=== PATIENT | female | born 1930 | race Caucasian/White ===

== ENCOUNTER 2017-09-10 10:33 | Inpatient (IN) | payer MEDICARE, OTHER ==
--- NOTE | 2017-09-03 14:34 | HP ---
HISTORY AND PHYSICAL: DATE OF ADMISSION/SURGERY: 09/10/17. DATE OF OFFICE VISIT: 09/02/17. SURGEON: Zulma Hernandez MD.* (DICTATED BY TERI VALDIVIA) PROCEDURE: Left total knee arthroplasty. CHIEF COMPLAINT: Left knee pain. HISTORY OF PRESENT ILLNESS: Ms. Masters is an 87-year-old female with severe left knee pain secondary to endstage osteoarthritis. She has failed conservative management and elected to proceed with left total knee arthroplasty , which was scheduled for 09/10/[address] Hernandez. PAST MEDICAL HISTORY: Hypertension, history of ovarian cancer. PAST SURGICAL HISTORY: Hysterectomy, right total knee arthroplasty, tonsillectomy. CURRENT MEDICATIONS: 1. Clobetasol as needed. 2. Aspirin 81 mg daily. 3. Diovan 80 mg daily. 4. Diclofenac gel as needed. ALLERGIES: SULFA and PENICILLIN, both causing hives. FAMILY HISTORY: Cancer. SOCIAL HISTORY: She is an 87-year-old female. She lives alone. She does not smoke, use drugs or alcohol. REVIEW OF SYSTEMS: A complete 14-point review of systems was reviewed with the patient and negative. It is all negative and noncontributory . She denies history of DVT, PE, hepatitis, HIV, or anesthesia problems. PHYSICAL EXAMINATION GENERAL: She is well developed, well nourished, in no acute distress. She is alert and oriented x3. VITAL SIGNS: She stands 5 feet 2 inches tall, weighs 170 pounds. Blood pressure is 142/70, heart rate 76. HEENT: Normocephalic, atraumatic. NECK: Supple. No palpable lymph nodes. PULMONARY: Lungs are clear to auscultation bilaterally. CARDIO: Regular rate and rhythm. ABDOMEN: Soft, nontender, nondistended. MUSCULOSKELETAL: Left lower extremity: Skin is intact. There are no open wounds or abrasions. She has some moderate joint effusion, tenderness over the medial and lateral joint line. 10 to 120 degrees of flexion with patellofemoral crepitus. She has 2+ dorsalis pedis pulses. Intact sensation in the lower extremities. Muscle group strengths are intact at 5/5. ASSESSMENT AND PLAN: Ms. Masters is an 87-year-old female with endstage osteoarthritis of the left knee. She has failed conservative management and elected to proceed with a left total knee arthroplasty which is scheduled for with Dr. Hernandez. Dr. Hernandez discussed the risks and benefits of the surgery at today's visit and all of her questions were answered. She will follow up with Dr. Hernandez in 2 weeks after the surgery. TERI VALDIVIA [id number]/[facility] #: [id number] GERMÁN
[~2017-09-10 10:33] MED LIST: Buffered Lidocaine 0.9% SYRIN* 5 ML/SYR SYRINGE INTRADERM ONE
[2017-09-10] MEDS ORDERED: ceFAZolin 2 GM PREMIX (*) 0 GM/0 ML BAG IVPB ONE (10:56)
[2017-09-10] MEDS ORDERED: Lidocaine 1%* 5 ML VIAL ONE (12:17)
[2017-09-10] MEDS ORDERED: ROPIVACAINE 5 MG/ML 30 ML BTL (0.5%) ONE (12:17)
[2017-09-10] MEDS ORDERED: Clindamycin 900 MG IVPREMIX(* 900 MG/50 ML SDV IV ONE (12:25)
[2017-09-10] MEDS ORDERED: Midazolam* 1 MG/ML 5 ML VIAL (5 MG) ONE (12:26)
[2017-09-10] MEDS ORDERED: fentaNYL* 50 MCG/ML 2 ML VIAL (100 MCG VIAL) ONE ×2 (12:49→13:34)
[2017-09-10] MEDS ORDERED: KETAMINE HCL* 50 MG/ML 10 ML VIAL ONE (12:50)
[2017-09-10] MEDS ORDERED: Succinylcholine* 20 MG/ML 10 ML VIAL ONE (12:50)
[2017-09-10] MEDS ORDERED: Propofol* 10 MG/ML 20 ML BTL IV PUSH ONE (13:17)
[2017-09-10] MEDS ORDERED: Lidocaine 2% PF * 5 ML VIAL ONE (13:23)
[2017-09-10] MEDS ORDERED: Dexamethasone IV* 4 MG/ML 1 ML (4 MG) ONE (13:23)
[2017-09-10] MEDS ORDERED: DiMENhydriNATE IV* 50 MG/ML VIAL ONE (13:23)
[2017-09-10] MEDS ORDERED: Ketorolac INJ* 30 MG/ML 1 ML VIAL ONE (13:23)
[2017-09-10] MEDS ORDERED: EPHEDrine (Pressors)* 50 MG/ML VIAL ONE (13:23)
[2017-09-10] MEDS ORDERED: Bupivacaine 0.5% SDV PF* 30ML VIAL ONE (13:24)
[2017-09-10] MEDS ORDERED: oxyCODONE TAB* 5 MG TAB PO PRN ×2 (13:56→15:25)
[2017-09-10] MEDS ORDERED: HYDROmorphone INJ* 1 MG/ML CARPUJECT SYRINGE IV PRN (13:56)
[2017-09-10] MEDS ORDERED: Acetaminophen TAB* 325 MG PO PRN ×2 (13:56→15:25)
[2017-09-10] MEDS ORDERED: Ondansetron INJ* 2 MG/ML VIAL IV PRN ×2 (13:56→15:25)
[2017-09-10] MEDS ORDERED: Naloxone* 0.4 MG/ML 1 ML VIAL IV PRN (13:56)
[2017-09-10] MEDS ORDERED: Gabapentin CAP(*) 300 MG PO ONE (14:00)
[2017-09-10] MEDS ORDERED: HYDROmorphone INJ* 1 MG/ML CARPUJECT SYRINGE ONE (14:53)
[2017-09-10] MEDS ORDERED: diPHENhydraMINE PO* 25 MG PO PRN (15:25)
[2017-09-10] MEDS ORDERED: Bisacodyl SUPP* 10 MG SUPP PR PRN (15:25)
[2017-09-10] MEDS ORDERED: Magnesium Hydroxide LIQ* 30 ML UDC PO PRN (15:25)
[2017-09-10] MEDS ORDERED: Morphine VIAL* 4 MG/ML VIAL (1 ml vial) IV PRN (15:25)
[2017-09-10] MEDS ORDERED: Gabapentin CAP(*) 300 MG ONE (15:48)
--- NOTE | 2017-09-10 16:47 | RAD ---
HISTORY: Postop, status post left knee arthroplasty COMPARISONS: August 12, 2017 VIEWS: 2, Frontal and lateral views of the left knee FINDINGS: BONE DENSITY: Normal. BONES: The patient is status post left knee arthroplasty. There is no hardware failure or osteolysis. JOINTS: The patient is status post left knee arthroplasty. ALIGNMENT: There is no dislocation. SOFT TISSUES: There is post surgical change to the soft tissues. OTHER FINDINGS: None. IMPRESSION: STATUS POST LEFT KNEE ARTHROPLASTY
[2017-09-10] MEDS ORDERED: Warfarin TAB(*) 6 MG PO ONE (17:00)
[2017-09-10 18:03] LABS: INR 0.92 (0.77-1.02)
[2017-09-10] MEDS: oxyCODONE/Acetamin 5/325 MG* TAB PO PRN (21:56)
[2017-09-10] MEDS: Docusate CAP* 100 MG PO SCH (21:56)
[2017-09-10] MEDS: Clindamycin 600 MG IVPREMIX(* 600 MG/50 ML SDV IV SCH (21:57)
[2017-09-10] MEDS: Magnesium Hydroxide LIQ* 30 ML UDC PO SCH (21:57)
--- NOTE | 2017-09-11 04:07 | CONS ---
CONSULTATION NOTE: DATE OF CONSULT: 09/10/17 CHIEF COMPLAINT/REASON FOR ADMISSION: The patient was admitted for elective left total knee arthroplasty. HISTORY OF PRESENT ILLNESS/HOSPITAL COURSE: The patient is an 87-year-old lady with history of hypertension and history of ovarian cancer, on remission, status post YOHANNES-BSO who also has had history of severe left knee pain secondary to end-stage osteoarthritis. She has failed conservative management and has elected to proceed with left total knee arthroplasty scheduled today. She had her preoperative evaluation by Ms. Rivas back on . She underwent the aforementioned procedure today without any reported perioperative complications. She currently feels well and currently pain free and in good spirits for surgical procedure. PAST MEDICAL AND SURGICAL HISTORY: Hypertension; history of ovarian cancer on remission, status post YOHANNES-BSO; status post right total knee arthroplasty; tonsillectomy; right leg fracture status post pin placement as well as cast placement back many years ago as well as end-stage osteoarthritis as discussed. MEDICATIONS: Her current medications are: 1. Tylenol. 2. Bisacodyl. 3. Clindamycin. 4. Diovan. 5. Diphenhydramine. 6. Colace. 7. Enoxaparin for DVT prophylaxis. 8. Gabapentin. 9. Hydromorphone. 10. Lactated Ringers. 11. Magnesium hydroxide. 12. Ondansetron. 13. Oxycodone. 14. Warfarin. ALLERGIES: SULFA and PENICILLIN causing hives for both. FAMILY HISTORY: Cancer. SOCIAL HISTORY: She lives alone. She does not smoke nor use drugs nor alcohol. REVIEW OF SYSTEMS: She denied any recent headaches, dizziness, fevers, chills, nausea, vomiting, chest pain, shortness of breath, increased cough or sputum production, abdominal pain, diarrhea, constipation, pain and/or increased urination, myalgias or arthralgias, throat pain or new skin lesions. The rest of the 14-point review of systems are otherwise unremarkable. PHYSICAL EXAM: Shows the most recent vital signs of records with temperature of 97.3 degrees Fahrenheit, 67 beats per minute heart rate, 16 per minute respiratory rate, saturating at 98% on room air, blood pressure of 141/62. General Appearance: The patient is awake, alert and oriented x3, not in acute distress. HEENT: Normocephalic, atraumatic. PERRLA. Extraocular muscles intact. Negative for icterus. Moist oral mucosa. Negative throat erythema. Neck is soft, supple with no cervical lymphadenopathy. No JVD. Heart: S1, S2 within normal limits. Regular rate and rhythm. No murmurs, rubs, or gallops. Chest: Clear to auscultation bilaterally. Good air entry. No wheezes, rales, or rhonchi. Abdomen: Soft, nondistended, nontender. Normoactive bowel sounds x4. Extremities: No cyanosis, clubbing, nor edema. She does have splints and dressings around her left lower extremity post surgery. Difficult to examine degree of edema around the perioperative area given the above. However, she denies any pain at this point as well as myalgias nor arthralgias and neuralgias. She can also move her fingers on exam. ASSESSMENT AND PLAN: As follows: 1. End-stage osteoarthritis status post left total knee arthroplasty: We will defer with Orthopedic Surgery for any further recommendations and subsequent followup. Pain is well controlled. 2. Hypertension, well controlled. Continue Diovan, to start in a.m. 3. DVT prophylaxis. The patient is on low dose Lovenox as well as Coumadin for DVT prophylaxis. For daily INRs 4. Disposition. The patient is ordered for PT, OT and will await their subsequent evaluation - as above. Defer with Orthopedic surgery. Appreciate us being able to participate in her care and management. We will follow along with you. [id number]/[facility] #: [id number] GERMÁN
[2017-09-11] MEDS: Clindamycin 600 MG IVPREMIX(* 600 MG/50 ML SDV IV SCH ×2 (05:57→12:32)
[2017-09-11 06:09] LABS: Hematocrit 32 % (35-47); Hemoglobin 10.8 g/dl (12.0-16.0); Mean Corpuscular HGB Conc 34 g/dl (31-36); Mean Corpuscular Hemoglobin 31 pg (27-31); Mean Corpuscular Volume 93 fL (80-97); Mean Platelet Volume 8.6 um3 (7.4-10.4); Platelet Count 180 10^3/ul (150-450); Red Blood Count 3.49 10^6/ul (4.0-5.4); Red Cell Distribution Width 14 % (10.5-15); White Blood Count 10.3 10^3/ul (3.5-10.8)
[2017-09-11 06:14] LABS: INR 0.97 (0.77-1.02)
[2017-09-11 06:28] LABS: EGFR Non-African American 109.6 (>60)
[2017-09-11] MEDS: Docusate CAP* 100 MG PO SCH ×2 (08:36→21:09)
[2017-09-11] MEDS: oxyCODONE/Acetamin 5/325 MG* TAB PO PRN ×2 (08:36→12:31)
[2017-09-11] MEDS: Valsartan TAB* 40 MG PO SCH (08:37)
[2017-09-11] MEDS: Magnesium Hydroxide LIQ* 30 ML UDC PO SCH ×2 (08:37→22:05)
[2017-09-11] MEDS: Vitamin THERAPEUTIC TAB PO SCH (08:37)
--- NOTE | 2017-09-11 15:34 | OP ---
DATE OF OPERATION: 09/10/17 - ROOM #347 DATE OF : 34 ATTENDING SURGEON: Zulma Hernandez MD. MARINE FIRER: TERI Durán. Ms. Singleton did help throughout the procedure with preparation of the leg, wound retraction, manipulation of the knee, and wound closure. ANESTHESIOLOGIST: Dr. Blevins. ANESTHESIA: General. PRE-OP DIAGNOSIS: Severe endstage degenerative osteoarthritis of the left knee joint. POST-OP DIAGNOSIS: Severe endstage degenerative osteoarthritis of the left knee joint. OPERATIVE PROCEDURE: Left total knee arthroscopy. TOURNIQUET TIME: 39 minutes. COMPLICATIONS: None. SPECIMENS: Bone and cartilage from the left knee joint sent to Pathology. ESTIMATED BLOOD LOSS: 300 cc. HARDWARE USED: Cemented [employer]hew total knee hardware. Two packages of Simplex bone cement. For the femur, a size 4 left posterior stabilized Legion femoral component. For the tibia, a size 3 left Jena II tibial base plate. For the insert, a 9 mm posterior stabilized articular insert size 3-4. For the patella a 32-mm 3-peg all poly patella. BRIEF HISTORY/INDICATION: Ms. Masters is an 87-year-old with years of increasingly severe left knee pain. She failed conservative treatment with antiinflammatories, pain medications, use of a cane, and intraarticular injections. Due to continued pain and decreased quality of life, she elected to undergo a left total knee arthroplasty. Informed consent was obtained from the patient. She understood the risks of surgery included but were not limited to bleeding, infection, damage to nearby structures, continued pain, need for further surgery, intraoperative fracture, nerve palsy, hardware failure or loosening, knee stiffness, loss of motion, stroke, heart attack, blood clot, and . She wished to proceed. INTRAOPERATIVE FINDINGS: Intraoperatively, the patient had five intraarticular loose bodies which were greater than 1 cm in diameter. She had extensive loss of cartilage in all three compartments. DESCRIPTION OF PROCEDURE: Ms. Masters was identified in the preanesthesia unit. Her left lower extremity was marked as the correct operative site. Informed consent was signed and placed in the chart. The patient was taken to the operating room and placed under general anesthesia. A Abraham catheter was placed. Tourniquet was placed on the left thigh. Left lower extremity was prepped and draped in the usual sterile fashion. Preop time-out was made to correctly identify the patient, side, and site. Appropriate perioperative antibiotics were given within 1 hour of incision. Tourniquet was inflated and total tourniquet time for this procedure was 39 minutes. A midline incision with a 10 blade and carried down to the extensor mechanism. A new 10 blade was used to make a standard medial parapatellar arthrotomy. The patella was subluxed laterally. Electrocautery was used to subperiosteally elevate soft tissue off the superomedial tibia to the mid sagittal plane. The knee was flexed up. The anterior horn of the lateral meniscus and ACL were missing, were not present. A drill was used to enter the distal femur. Intramedullary distal femoral cutting guide was pinned on the distal femur. Oscillating saw was used to make the distal femoral cut. Next, the external rotation guide was pinned on the distal femur. Distal femur was sized to a size 4. Size 4 multi cutting jig was pinned on the distal femur. Oscillating saw was used to make the 4 chamfer cuts. The PCL was completely released. The tibia was subluxed anteriorly. The extramedullary tibial cutting guide was pinned on the proximal tibia. Oscillating saw was used to make the proximal tibial cut and the bone was carefully removed. The knee was brought out into full extension. The spacer block had good fit. The medial and lateral ligaments were well balanced. Flexion and extension gaps were well balanced. The knee was flexed up. Lamina construction project coordinator was placed both medially and laterally. Any remaining meniscus was removed using electrocautery. Curved osteotome was used to remove any posterior osteophytes. Tibial tray and drop rods were placed to once again confirm a satisfactory tibial cut. This was confirmed. A size 4 left femoral trial was impacted on to the distal femur and had good fit. The box for the posterior stabilized implant was prepared using a reamer and box cut osteotome. A size 3 tibial tray and a 9-mm insert trial were placed. The knee was taken through a range of motion. The knee had full extension to 130 degrees of flexion. There was satisfactory patellofemoral tracking. The patella was everted. 9 mm of patellar bone and cartilage were carefully removed from the patella. The patella was sized to a size 32. The 3 peg holes were drilled through the size 32 guide. A size 32 trial patella was placed and the knee was taken through a range of motion. There was satisfactory patellofemoral tracking. All trials were carefully removed. The tibia was subluxed anteriorly and the tibia was sized to a size 3. Proximal tibia was prepared using a size 3 keel punch. All bony cut surfaces were copiously irrigated with sterile saline and dried. Final implants were cemented into place starting with the tibia followed by the femur and last the patella. A 9-mm insert trial was placed and the knee was brought out into full extension. The tourniquet was turned down. The knee was copiously irrigated with sterile saline. Electrocautery was used to obtain meticulous hemostasis. Once the cement had finally cured, the insert trial was removed. Any excess cement was removed from around the knee capsule and implant. Final insert chosen was a 9- mm posterior stabilized articular insert size 3-4. This was locked into position on the tibial tray. Stability of the insert was checked and rechecked and noted to be stable. The knee was once again copiously irrigated with sterile saline. The extensor mechanism was closed using interrupted #1 Vicryls. The rest of the incision was closed in a layered fashion using 0 and 2-0 Vicryls. The skin was closed using running 3-0 nylon suture. Sterile Xeroform, 4x4s, and Webril were used to cover the incision. Heron wrap and cold pack were placed over this. The patient's anesthesia was reversed without difficulty. She was taken to the PACU in stable condition. Intended weight bearing will be weight bearing as tolerated. Intended DVT prophylaxis will be Coumadin with a Lovenox bridge. [id number]/[facility] #: [id number] GERMÁN
[2017-09-11] MEDS ORDERED: Enoxaparin(*) 30 MG/0.3 ML SYR SUBCUT SCH (16:00)
--- NOTE | 2017-09-11 16:39 | PN ---
Progress Note - Progress Note Date of Service: 09/11/17 SOAP: Subjective: []Patient seen at bedside. She feels well with well controlled left knee pain. Denies CP, SOB, dizziness or nausea Objective: [] Vital Signs Temp 98.0 F 09/11/17 11:38 Pulse 60 09/11/17 11:38 Resp 16 09/11/17 16:03 BP 108/59 09/11/17 11:38 Pulse Ox 98 09/11/17 11:38 Intake & Output 09/10/17 09/11/17 09/11/17 18:59 06:59 18:59 Intake Total 1999 1691 925 Output Total 100 1100 500 Balance 1900 591 425 Weight 170 lb 3.2 oz Intake: IV Fluids 1999 976 LR 1999 976 IVPB 55 ABX - CLINDAMYCIN 55 Oral 660 925 Output: Urine 500 Abraham 100 1100 Laboratory Last Values WBC 10.3 10^3/ul (3.5-10.8) 09/11/17 05:37 RBC 3.49 10^6/ul (4.0-5.4) L 09/11/17 05:37 Hgb 10.8 g/dl (12.0-16.0) L 09/11/17 05:37 Hct 32 % (35-47) L 09/11/17 05:37 MCV 93 fL (80-97) 09/11/17 05:37 MCH 31 pg (27-31) 09/11/17 05:37 MCHC 34 g/dl (31-36) 09/11/17 05:37 RDW 14 % (10.5-15) 09/11/17 05:37 Plt Count 180 10^3/ul (150-450) 09/11/17 05:37 MPV 8.6 um3 (7.4-10.4) 09/11/17 05:37 INR (Anticoag Therapy) 0.97 (0.77-1.02) 09/11/17 05:37 Sodium 137 mmol/L (139-145) L 09/11/17 05:37 Potassium 4.3 mmol/L (3.5-5.0) 09/11/17 05:37 Chloride 103 mmol/L (101-111) 09/11/17 05:37 Carbon Dioxide 29 mmol/L (22-32) 09/11/17 05:37 Anion Gap 5 mmol/L (2-11) 09/11/17 05:37 BUN 14 mg/dL (6-24) 09/11/17 05:37 Creatinine 0.53 mg/dL (0.51-0.95) 09/11/17 05:37 Est GFR ( Amer) 141.0 (>60) 09/11/17 05:37 Est GFR (Non-Af Amer) 109.6 (>60) 09/11/17 05:37 BUN/Creatinine Ratio 26.4 (8-20) H 09/11/17 05:37 Glucose 116 mg/dL (70-100) H 09/11/17 05:37 Calcium 8.8 mg/dL (8.6-10.3) 09/11/17 05:37 Magnesium 1.8 mg/dL (1.9-2.7) L 09/11/17 05:37 Total Bilirubin 0.50 mg/dL (0.2-1.0) 09/11/17 05:37 AST 12 U/L (13-39) L 09/11/17 05:37 ALT 10 U/L (7-52) 09/11/17 05:37 Alkaline Phosphatase 48 U/L (34-104) 09/11/17 05:37 Total Protein 5.0 g/dL (6.4-8.9) L 09/11/17 05:37 Albumin 3.3 g/dL (3.2-5.2) 09/11/17 05:37 Globulin 1.7 g/dL (2-4) L 09/11/17 05:37 Albumin/Globulin Ratio 1.9 (1-3) 09/11/17 05:37 General: Well appearing, NAD LLE: Left knee dressing CDI without surrounding erythema, thigh is soft. DF/PF intact. Sensation intact distally. 2+ DP pulse and capillary refill less than two seconds distally Assessment: [] POD 1 sp left total knee arthroplasty Plan: []WBAT PT/OT Lovenox bridge. coumadin 6 mg today
[2017-09-11] MEDS ORDERED: Warfarin TAB(*) 6 MG PO ONE (17:15)
[2017-09-12] MEDS: oxyCODONE/Acetamin 5/325 MG* TAB PO PRN ×2 (06:05→11:50)
[2017-09-12 07:19] LABS: Hematocrit 32 % (35-47); Hemoglobin 10.9 g/dl (12.0-16.0); Mean Platelet Volume 8.7 um3 (7.4-10.4); Platelet Count 178 10^3/ul (150-450)
[2017-09-12 07:23] LABS: INR 1.39 (0.77-1.02)
[2017-09-12] MEDS: Vitamin THERAPEUTIC TAB PO SCH (08:18)
[2017-09-12] MEDS: Docusate CAP* 100 MG PO SCH (08:18)
[2017-09-12] MEDS: Magnesium Hydroxide LIQ* 30 ML UDC PO SCH (08:18)
[2017-09-12] MEDS: Valsartan TAB* 40 MG PO SCH (08:18)
[2017-09-12 11:44] VITALS: BP 121/49
--- NOTE | 2017-09-12 13:38 | PN ---
Progress Note - Progress Note Date of Service: 09/12/17 SOAP: Subjective: []Patient seen at bedside. She feels well with well controlled left knee pain. Denies CP, SOB, dizziness, nausea. Objective: [] Vital Signs Temp 98.1 F 09/12/17 11:37 Pulse 82 09/12/17 11:52 Resp 16 09/12/17 11:50 BP 121/49 09/12/17 11:37 Pulse Ox 96 09/12/17 11:52 Intake & Output 09/11/17 09/12/17 09/12/17 18:59 06:59 18:59 Intake Total 1035 315 400 Output Total 700 1300 Balance 335 -985 400 Intake: Oral 1035 315 400 Output: Urine 700 1300 Other: Estimated Void Large # Voids 1 Laboratory Last Values WBC 10.3 10^3/ul (3.5-10.8) 09/11/17 05:37 RBC 3.49 10^6/ul (4.0-5.4) L 09/11/17 05:37 Hgb 10.9 g/dl (12.0-16.0) L 09/12/17 06:46 Hct 32 % (35-47) L 09/12/17 06:46 MCV 93 fL (80-97) 09/11/17 05:37 MCH 31 pg (27-31) 09/11/17 05:37 MCHC 34 g/dl (31-36) 09/11/17 05:37 RDW 14 % (10.5-15) 09/11/17 05:37 Plt Count 178 10^3/ul (150-450) 09/12/17 06:46 MPV 8.7 um3 (7.4-10.4) 09/12/17 06:46 INR (Anticoag Therapy) 1.39 (0.77-1.02) H 09/12/17 06:46 Sodium 137 mmol/L (139-145) L 09/11/17 05:37 Potassium 4.3 mmol/L (3.5-5.0) 09/11/17 05:37 Chloride 103 mmol/L (101-111) 09/11/17 05:37 Carbon Dioxide 29 mmol/L (22-32) 09/11/17 05:37 Anion Gap 5 mmol/L (2-11) 09/11/17 05:37 BUN 14 mg/dL (6-24) 09/11/17 05:37 Creatinine 0.53 mg/dL (0.51-0.95) 09/11/17 05:37 Est GFR ( Amer) 141.0 (>60) 09/11/17 05:37 Est GFR (Non-Af Amer) 109.6 (>60) 09/11/17 05:37 BUN/Creatinine Ratio 26.4 (8-20) H 09/11/17 05:37 Glucose 116 mg/dL (70-100) H 09/11/17 05:37 Calcium 8.8 mg/dL (8.6-10.3) 09/11/17 05:37 Magnesium 1.8 mg/dL (1.9-2.7) L 09/11/17 05:37 Total Bilirubin 0.50 mg/dL (0.2-1.0) 09/11/17 05:37 AST 12 U/L (13-39) L 09/11/17 05:37 ALT 10 U/L (7-52) 09/11/17 05:37 Alkaline Phosphatase 48 U/L (34-104) 09/11/17 05:37 Total Protein 5.0 g/dL (6.4-8.9) L 09/11/17 05:37 Albumin 3.3 g/dL (3.2-5.2) 09/11/17 05:37 Globulin 1.7 g/dL (2-4) L 09/11/17 05:37 Albumin/Globulin Ratio 1.9 (1-3) 09/11/17 05:37 General: Well appearing, NAD LLE: Left knee dressing changed by Dr Hernandez this morning without complication, remains CDI without surrounding erythema, thigh is soft. DF/PF intact. Sensation intact distally. 2+ DP pulse and capillary refill less than two seconds distally Assessment: [] POD 2 sp left total knee arthroplasty Plan: []WBAT PT/OT Lovenox bridge. coumadin 6 mg today PMRU today
--- NOTE | 2017-09-13 12:26 | DS ---
DISCHARGE SUMMARY: DATE OF ADMISSION: 09/10/17 DATE OF DISCHARGE: SURGEON: Zulma Hernandez MD * (DICTATED BY TERI WEBB) FINAL INSPECTOR [employer]LES: TERI Durán PREOPERATIVE DIAGNOSIS: Severe end-stage degenerative osteoarthritis of the left knee joint. OPERATIVE PROCEDURE: Left total knee arthroplasty. HISTORY: Ms. Masters is an 87-year-old female with years of increasingly severe left knee pain. She failed conservative treatment with the anti-inflammatories , pain medications, use of a cane, intraarticular injections and elected to undergo left total knee arthroplasty. HOSPITAL COURSE: The patient was admitted to [facility] on . She underwent a left total knee arthroplasty without complication. She recovered briefly in the PACU and then was transferred to the short-stay surgical unit in stable condition. She was followed by a hospitalist service, physical therapy and occupational therapy during her stay. There is no change in her home medications. On postop day 1, she was well appearing, in no acute distress. Dressing was clean, dry and intact without surrounding erythema. Thigh was soft. Dorsiflexion and plantarflexion intact. Sensation intact distally. Dorsalis pedis pulse 2+ with capillary refill less than 2 seconds distally. On postop day 2, the patient was well appearing, in no acute distress. Left knee dressing was changed by Dr. Hernandez this morning without complication. Dorsiflexion and plantarflexion intact. Sensation intact distally. 2+ dorsalis pedis pulse. Capillary refill less than 2 seconds distally. Hemoglobin 10.9, hematocrit 32. Vitals: Temperature 98.1, pulse 82 , respiratory rate 16, blood pressure 121/49, and pulse ox 96%. The patient was deemed to be medically and orthopedically stable for discharge to [facility] today. DISCHARGE MEDICATIONS: 1. Diovan 40 mg p.o. q.a.m. 2. Baby aspirin 81 mg p.o. q.a.m. 3. Tylenol 1 tab p.o. b.i.d. p.r.n. 4. Acetaminophen 650 mg p.o. q.4 hours p.r.n., max daily dose of 4000 units. 5. Docusate 100 mg p.o. b.i.d. 6. Lovenox 30 mg subcu q.24 hours until therapeutic INR. 7. Oxycodone/acetaminophen 5/325 one to two tabs every 4 to 6 hours p.r.n., max daily dose of 10. 8. Warfarin 2 mg tablet 1 to 3 tablets daily, dose depends on INR draws. DISCHARGE PLAN: The patient will be weightbearing as tolerated. She may shower after the third postoperative day. She may not submerge the wound. She will follow up with Dr. Hernandez in 10 to 14 days, Percocet 5/325 one to two tabs every 4 to 6 hours as needed for pain, max of 10 tabs per day, Coumadin dosing per INR draws. TERI WEBB [id number]/[facility] #: [id number] [facility]
== END 2017-09-12 14:04 | DRG 470 ==
LOC: AA 10:33 → SSU 17:21
PROVIDERS: ADMIT Orthopaedic Surgery Adult Reconstructive Orthopaedic Surgery; ATTEND Orthopaedic Surgery Adult Reconstructive Orthopaedic Surgery
PROC: 0SRD0J9 Replacement of Left Knee Joint with Synthetic Substitute, Cemented, Open Approach (ICD-10-PCS; principal; 2017-09-10 12:30)
DX: M17.12 Unilateral primary osteoarthritis, left knee (principal); I10 Essential (primary) hypertension; Z96.651 Presence of right artificial knee joint; I35.1 Nonrheumatic aortic (valve) insufficiency; M19.042 Primary osteoarthritis, left hand; M19.041 Primary osteoarthritis, right hand; I35.2 Nonrheumatic aortic (valve) stenosis with insufficiency; M25.762 Osteophyte, left knee; Z79.82 Long term (current) use of aspirin; Z79.01 Long term (current) use of anticoagulants; Z85.43 Personal history of malignant neoplasm of ovary; Z90.710 Acquired absence of both cervix and uterus; Z88.2 Allergy status to sulfonamides; Z88.0 Allergy status to penicillin; Z80.0 Family history of malignant neoplasm of digestive organs; Z90.722 Acquired absence of ovaries, bilateral
CPT/HCPCS: 36415; 80053; 83735; 85014; 85018; 85027; 85049; 85610; A9270-GY; C1776; G8978-GP-CJ; G8979-GP-CI; G8987-GO-CK; G8988-GO-CI; J0330; J0690; J1100; J1170; J1240; J1650; J1885; J2250; J2704; J2795; J3010

== ENCOUNTER 2017-09-12 10:53 | Inpatient (IN) | payer MEDICARE, OTHER ==
[2017-09-12] MEDS ORDERED: Senna TAB PO PRN (12:35)
[2017-09-12] MEDS ORDERED: Magnesium Hydroxide LIQ* 30 ML UDC PO PRN (12:45)
[2017-09-12] MEDS ORDERED: oxyCODONE/Acetamin 5/325 MG* TAB PO PRN ×2 (12:45→12:47)
[2017-09-12] MEDS ORDERED: Warfarin TAB(*) 2.5 MG PO SCH (17:00)
[2017-09-12] MEDS: Enoxaparin(*) 30 MG/0.3 ML SYR SUBCUT SCH (17:12)
[2017-09-12] MEDS: Docusate CAP* 100 MG PO SCH (21:08)
--- NOTE | 2017-09-13 03:37 | HP ---
ADMISSION HISTORY AND PHYSICAL: DATE OF ADMISSION: 09/12/17 REASON FOR ADMISSION: Left total knee replacement. HISTORY OF PRESENT ILLNESS: Therese Masters is an 87-year-old white female. She has a medical history significant for hypertension. She has a history of ovarian cancer and has undergone a total abdominal hysterectomy with bilateral salpingo- oophorectomy. She had a right total knee replacement done 2 years ago in [place]. She has had ongoing difficulty with left knee pain since that time. The patient sought out consultation with orthopedic surgeons locally. She had x-ray showing end-stage osteoarthritis. She had a failed conservative treatment including physical therapy and injections. It was decided the best course of action would be for her to have a left total knee replacement. She was admitted to [facility] on 09/10/17 and underwent the total knee replacement that day. Postoperatively, her course has been benign. She was felt to have physical therapy and occupational therapy needs. She is now being admitted for inpatient rehab so that she might return to independent living. PAST MEDICAL HISTORY: Significant for the aforementioned ovarian cancer. She underwent hysterectomy for that many years ago. She has had a right total knee replacement done 2 years ago. She has a history of hypertension as well. CURRENT MEDICATIONS: Include Lovenox and Coumadin for DVT prophylaxis. She is on Diovan and Percocet for pain control. ALLERGIES: To PENICILLIN and SULFA. SOCIAL HISTORY: She is a nonsmoker, nondrinker. Lives by herself in a 2-story house in [place]. She does have a daughter, who can get her groceries. She stays largely on 1 floor. REVIEW OF SYSTEMS: No current shortness of breath or chest pain. Her last bowel movement was Saturday. PHYSICAL EXAMINATION VITAL SIGNS: The patient's temperature is 98.7, blood pressure is 118/41, pulse 78, respirations 16. HEENT: Extraocular movements were intact. Tongue is midline. NECK: Supple. LUNGS: Sound clear to auscultation bilaterally. HEART: Heart sounds are regular. S1 and S2 are audible. ABDOMEN: Soft and nontender. EXTREMITIES: Her extremities show a left knee wound, which is clean and dry. Peripheral pulses are intact. NEUROLOGIC: She is awake, alert, oriented. Muscle strength is 5/5 in both upper and lower extremities except the left leg, which is 3/5 secondary to pain. FUNCTIONAL EXAM: She transfers with moderate amount of assistance. ASSESSMENT: Left total knee replacement. PLAN: Integrate her into a comprehensive and therapeutic rehab program with the following goals: 1. Physical Therapy will work with the patient. They are going to work on functional transfer training and ambulation training with a walker. 2. Occupational Therapy will see the patient, work on her activities of daily living including toileting and toilet transfers. 3. Coumadin for DVT prophylaxis. We will discontinue her Lovenox when her Coumadin is therapeutic. 4. Adequate analgesia. 5. Her bowels will be regulated. 6. Continue Diovan for hypertension. 7. Secured Entrance Monitor will be closely involved to make sure that any services and equipment the patient requires are in place prior to discharge. 8. Home with appropriate services. ESTIMATED LENGTH OF STAY: 10 days. [id number]/[facility] #: [id number] MTDD
[2017-09-13 06:48] LABS: ABS Basophils 0 10^3/ul (0-0.2); ABS Eosinophils 0.1 10^3/ul (0-0.6); ABS Lymphocytes 0.8 10^3/ul (1.0-4.8); ABS Monocytes 0.5 10^3/ul (0-0.8); ABS Neutrophils 4.7 10^3/ul (1.5-7.7); ABS Nucleated RBC 0 10^3/ul; Eosinophil % 1.1 % (0-6); Hematocrit 31 % (35-47); Hemoglobin 10.7 g/dl (12.0-16.0); Lymphocyte % 13.6 % (25-47); Mean Corpuscular HGB Conc 35 g/dl (31-36); Mean Corpuscular Hemoglobin 32 pg (27-31); Mean Corpuscular Volume 92 fL (80-97); Mean Platelet Volume 8.8 um3 (7.4-10.4); Nucleated Red Blood Cells % 0; Platelet Count 184 10^3/ul (150-450); Red Blood Count 3.37 10^6/ul (4.0-5.4); Red Cell Distribution Width 14 % (10.5-15); White Blood Count 6.2 10^3/ul (3.5-10.8)
[2017-09-13 06:49] LABS: INR 1.39 (0.77-1.02)
[2017-09-13 06:58] LABS: EGFR Non-African American 122.9 (>60)
[2017-09-13] MEDS: Valsartan TAB* 40 MG PO SCH (08:04)
[2017-09-13] MEDS: Docusate CAP* 100 MG PO SCH ×2 (08:04→20:34)
--- NOTE | 2017-09-13 10:45 | PN ---
Progress Note Date of Service: 09/13/17 Note: MELINA COLORADO was visited. Nursing and therapy notes read and reviewed. No chest pain, shortness of breath or abdominal pain. No concerns. Current Medications: Active Medications Generic Name Dose Route Start Last Admin Trade Name Freq PRN Reason Stop Dose Admin Acetaminophen 650 mg 09/12/17 12:35 Tylenol Tab* PO Q6H PRN FEVER/PAIN Docusate Sodium 100 mg 09/12/17 21:00 09/13/17 08:04 Colace Cap* PO 100 mg BID SALUD Administration Enoxaparin Sodium 30 mg 09/12/17 17:00 09/12/17 17:12 Lovenox(*) SUBCUT 30 mg Q24H SALUD Administration Magnesium Hydroxide 30 ml 09/12/17 12:45 Milk Of Magnesia Liq* PO Q6H PRN CONSTIPATION Oxycodone/Acetaminophen 1 tab 09/12/17 12:45 Percocet 5/325 Tab* PO Q4H PRN PAIN - MODERATE TO SEVERE Oxycodone/Acetaminophen 2 tab 09/12/17 12:47 Percocet 5/325 Tab* PO Q4H PRN PAIN - SEVERE Senna 2 tab 09/12/17 12:35 Senokot Tab* PO BEDTIME PRN CONSTIPATION Valsartan 40 mg 09/13/17 09:00 09/13/17 08:04 Diovan Tab* PO 40 mg DAILY SALUD Administration Warfarin Sodium 4 mg 09/13/17 17:00 Coumadin Tab(*) PO DAILY@1700 [facility] Protocol Vital Signs: Vital Signs Temp Pulse Resp BP Pulse Ox 99.9 F 74 20 132/50 97 09/13/17 06:19 09/13/17 06:19 09/13/17 06:19 09/13/17 06:19 09/13/17 06:19 Lab Results: Laboratory Results - last 24 hr 09/13/17 09/13/17 09/13/17 06:02 06:02 06:02 WBC 6.2 RBC 3.37 L Hgb 10.7 L Hct 31 L MCV 92 MCH 32 H MCHC 35 RDW 14 Plt Count 184 MPV 8.8 Neut % (Auto) 76.7 Lymph % (Auto) 13.6 L Rutherford % (Auto) 7.9 H Eos % (Auto) 1.1 Baso % (Auto) 0.7 Absolute Neuts (auto) 4.7 Absolute Lymphs (auto) 0.8 L Absolute Monos (auto) 0.5 Absolute Eos (auto) 0.1 Absolute Basos (auto) 0 Absolute Nucleated RBC 0 Nucleated RBC % 0 INR (Anticoag Therapy) 1.39 H Sodium 138 L Potassium 3.7 Chloride 102 Carbon Dioxide 30 Anion Gap 6 BUN 11 Creatinine 0.48 L Est GFR ( Amer) 158.1 Est GFR (Non-Af Amer) 122.9 BUN/Creatinine Ratio 22.9 H Glucose 106 H Calcium 8.7 Total Bilirubin 0.60 AST 11 L ALT 8 Alkaline Phosphatase 47 Total Protein 5.3 L Albumin 3.3 Globulin 2.0 Albumin/Globulin Ratio 1.7 Exam: GEN: no acute distress. alert and appropriate. LUNGS: Clear to auscultation bilaterally. HEART: Regular rate and rhythm ABDOMEN: + bowel sounds, soft, non-tender and non-distended. EXTREMITIES: Mild left LE edema as expected post-op. Dressing c/d/i NEUROLOGIC: LE motor 5/5 bilaterally with normal sensation. Assessment/Plan: 87yo woman s/p left TKR secondary to OA #Left TKR: f/u with Dr. Hernandez. Percocet prn. PT/OT. #DVT ppx: lovenox bridge to coumadin. Increase coumadin to 4mg tonight. INR Sat/ Sun #Hypertension: diovan #Advanced Directives: full code #Estimated LOS: IPOC meeting today. 09/13/17 10:45
[2017-09-13] MEDS: Acetaminophen TAB* 325 MG PO PRN (13:08)
--- NOTE | 2017-09-13 13:25 | PMRUTEAM ---
PMRU: Team Meeting Current Status: Nursing: Current Status Skin Deviations [Left Knee] Incision Skin Deviation Description [ demarco wrap in place Left Knee] Physical Therapy: Current Status Bed Mobility Assistance Independent Transfer Moblility Assistance contact guard Transfer/Bed Mobility Rolling Walker Recommended Devices Ambulation Assistance contact guard Ambulation Assistive Devices Rolling Walker Number of Feet Patient 1x75', 1x100' Ambulated Stairs Assistance Min-Mod Assist Stairs Recommended Devices Two Rails Number of Stairs x4 Objective Comments Pt able to ascend/descend stairs with mod A at gait belt for steadying with use of both rails and step-to pattern, leading with the RLE up, LLE down. Occupational Therapy: Current Status Upper Body Dressing Supervision Lower Body Dressing Ind with Adaptive Equip,Supervision Bathing Min Assist Toileting Ind with Adaptive Equip,Supervision Toilet Transfer Ind with Adaptive Equip Eating Ind with Adaptive Equip Rec Therapy: Current Status Summary of Assessment and Pt. was very engaged in conversation - pleasant, Clinical Impression cooperative, and interested in leisure activities while on the unit. Pt. identified with interests and active involvement in them prior to admission. Pt. has number fill-ins for her room and is open to continued leisure vistis. Treatment Goals Pt. will engage in leisure leisure activities while on the unit. Treatment Plan Provide RT services and encourage involvement. Social Work: Current Status Discharge Plan return home with home care svs and family support Potential for Family Training pt's family are involved and supportive Anticipated Discharge Home Destination Discharge With home care svs and family support Goals: Occupational Therapy: Initial Goals Goals to be Completed in (Days 1-2 ) Upper Body Bathing Routine Independent Lower Body Bathing Routine Modified Independent with Upper Body Dressing Routine Independent Lower Body Dressing Routine Modified Independent with Toilet Hygeine and Clothing Modified Independent with Management Routine Toilet Transfer Routine Modified Independent with Step-In Shower Transfer Modified Independent with Routine Functional Transfers for ADL Modified Independent with Grooming Routine Independent Feeding Routine Independent Light Housekeeping Tasks Modified Independent with PHYSICAL THERAPY: INITIAL GOALS - Modified independent transfers and ambulation with rolling walker 150Ft. 4 Stairs with 2 rails or use ramp. Social Work: Goals Discharge Plan return home with home care svs and family support Potential for Family Training pt's family are involved and supportive Anticipated Discharge Home Destination Discharge With home care svs and family support Care Plan: Care Plan ADL's - Improve/Maintain Start: 09/12/17 14:42 Freq: QSHIFT Status: Active Target: Protocol: Activity Type Activity Date Activity User E-Sign Co-Sign Detail Recorded Client Recorded Date Recorded By Document 09/12/17 14:42 [id number] 09/12/17 14:42 [id number] 09/12/17 14:42 PMRU Outcome: ADL's/ADL Transfers Orders/Interventions Occupational Therapy Evaluation & Treatment Communication Tool in Patient Room Patient to receive OT 5x/wk for 60-120 Therex min/day Self Care Management Group Therapy UE/LE ADL's with Assist Yes: mod I ADL Transfers with Assist Yes: mod I Toileting: Transfers,Clothing Management Yes: mod I ,Hygeine w/Assist Light Kitchen/Laundry w/Assist Yes: mod I Progression Toward Outcome/Goals Progressing Outcome/Goals Met Pt presents with L knee pain, limited L knee AROM, and balance deficits that affect her ability to complete bathing, dressing, toileting, toilet transfers, showering and household tasks . Pt would benefit from OT intervention in an acute rehab setting for 1-2 days to maximize independence with ADLs and ADL transfers prior to returning home with limited family support. Pt is agreeable to OT POC and is excited about the rehab process. She is nearing achievement of OT goals set during acute care. [ End ] Education-Improve/Maintain Start: 09/12/17 19:29 Freq: QSHIFT Status: Active Target: Protocol: Activity Type Activity Date Activity User E-Sign Co-Sign Detail Recorded Client Recorded Date Recorded By Document 09/12/17 19:30 [id number] [id number] 09/12/17 19:31 [id number] 09/12/17 19:30 PMRU Outcome: Education Outcome/Goals Demonstrate/ Verbalize Understanding of Written Discharge Instructions Demonstrates Skills Encourage Questions Progression Toward Outcome/Goals Progressing /GI-Improve/Maintain Start: 09/12/17 19:29 Freq: QSHIFT Status: Active Target: Protocol: Activity Type Activity Date Activity User E-Sign Co-Sign Detail Recorded Client Recorded Date Recorded By Document 09/12/17 19:30 [id number] 09/12/17 19:31 [id number] 09/12/17 19:30 PMRU Outcome: Genitourinary/ Gastrointestinal Genitourinary- Outcome/Goals Maintain/ Achieve Urinary Continence Gastrointestinal-Outcome/Goals Maintain/ Achieve Bowel Regularity in Accordance with Pt's Baseline Remain Free of Emesis Progression Toward Outcome/Goals - Progressing Progression Toward Outcome/Goals - GI Progressing Pain/Comfort- Improve/Maintain Start: 09/12/17 19:29 Freq: QSHIFT Status: Active Target: Protocol: Activity Type Activity Date Activity User E-Sign Co-Sign Detail Recorded Client Recorded Date Recorded By Document 09/12/17 19:30 [id number] 09/12/17 19:31 [id number] 09/12/17 19:30 PMRU Outcome: Pain/Comfort Outcome/Goals Demonstrates Knowledge and Use of Available Comfort Measures Progression Toward Outcome/Goals Progressing Safety- Improve/Maintain Start: 09/12/17 19:29 Freq: QSHIFT Status: Active Target: Protocol: Activity Type Activity Date Activity User E-Sign Co-Sign Detail Recorded Client Recorded Date Recorded By Document 09/12/17 19:30 [id number] 09/12/17 19:31 [id number] 09/12/17 19:30 PMRU Outcome: Safety Outcome/Goals Remain Free of Injury or Harm Cooperates with Safety Measures for Least Restrictive Environment Prevent Falls/ Injury Progression Toward Outcome/Goals Progressing Skin- Improve/Maintain Start: 09/12/17 19:29 Freq: QSHIFT Status: Active Target: Protocol: Activity Type Activity Date Activity User E-Sign Co-Sign Detail Recorded Client Recorded Date Recorded By Document 09/12/17 19:30 [id number] 09/12/17 19:31 [id number] 09/12/17 19:30 PMRU Outcome: Skin Skin Risk Level Medium Outcome/Goals Maintain/ Improve Skin Intergrity Progression Toward Outcome/Goals Progressing Medicine Note: Length of Stay: [4 days] Anticipated Discharge Destination: Home Tentative Discharge Date: [09/17/17] Discharged to: [home]
[2017-09-13] MEDS: Enoxaparin(*) 30 MG/0.3 ML SYR SUBCUT SCH (16:55)
[2017-09-13] MEDS ORDERED: Warfarin TAB(*) 2.5 MG PO SCH (17:00)
[2017-09-13] MEDS ORDERED: Warfarin TAB(*) 4 MG PO SCH (17:30)
[2017-09-14 07:20] LABS: INR 1.3 (0.77-1.02)
[2017-09-14] MEDS: Docusate CAP* 100 MG PO SCH ×2 (08:44→20:54)
[2017-09-14] MEDS: Valsartan TAB* 40 MG PO SCH (08:44)
--- NOTE | 2017-09-14 11:50 | PN ---
Progress Note Date of Service: 09/14/17 Note: MELINA COLORADO was visited. Nursing and therapy notes read and reviewed. No chest pain, shortness of breath or abdominal pain. No new concerns. Current Medications: Active Medications Generic Name Dose Route Start Last Admin Trade Name Freq PRN Reason Stop Dose Admin Acetaminophen 650 mg 09/12/17 12:35 09/13/17 13:08 Tylenol Tab* PO 650 mg Q6H PRN Administration FEVER/PAIN Docusate Sodium 100 mg 09/12/17 21:00 09/14/17 08:44 Colace Cap* PO 100 mg BID SALUD Administration Enoxaparin Sodium 30 mg 09/12/17 17:00 09/13/17 16:55 Lovenox(*) SUBCUT 30 mg Q24H SALUD Administration Magnesium Hydroxide 30 ml 09/12/17 12:45 Milk Of Magnesia Liq* PO Q6H PRN CONSTIPATION Oxycodone/Acetaminophen 1 tab 09/12/17 12:45 Percocet 5/325 Tab* PO Q4H PRN PAIN - MODERATE TO SEVERE Oxycodone/Acetaminophen 2 tab 09/12/17 12:47 Percocet 5/325 Tab* PO Q4H PRN PAIN - SEVERE Senna 2 tab 09/12/17 12:35 Senokot Tab* PO BEDTIME PRN CONSTIPATION Valsartan 40 mg 09/13/17 09:00 09/14/17 08:44 Diovan Tab* PO 40 mg DAILY SALUD Administration Warfarin Sodium 4 mg 09/13/17 17:30 09/13/17 17:17 Coumadin Tab(*) PO 4 mg DAILY@1700 SALUD Administration Protocol Vital Signs: Vital Signs Temp Pulse Resp BP Pulse Ox 98.6 F 72 18 129/51 97 09/14/17 04:42 09/14/17 04:42 09/14/17 04:42 09/14/17 04:42 09/14/17 08:50 Lab Results: Laboratory Results - last 24 hr 09/14/17 07:03 INR (Anticoag Therapy) 1.30 H Exam: GEN: no acute distress. alert and appropriate. LUNGS: Clear to auscultation bilaterally. HEART: Regular rate and rhythm ABDOMEN: + bowel sounds, soft, non-tender and non-distended. EXTREMITIES: Mild left LE edema as expected post-op. Dressing c/d/i NEUROLOGIC: LE motor 5/5 bilaterally with normal sensation. Assessment/Plan: 87yo woman s/p left TKR secondary to OA #Left TKR: f/u with Dr. Hernandez. She was seen by Dr. Hernandez this morning. Percocet prn. PT/OT. #DVT ppx: lovenox bridge to coumadin. Increase coumadin to 5mg tonight. INR Sun #Hypertension: diovan #Advanced Directives: full code #Estimated LOS: anticipate d/c on 09/17/17 09/14/17 11:48
[2017-09-14] MEDS: Enoxaparin(*) 30 MG/0.3 ML SYR SUBCUT SCH (16:30)
[2017-09-14] MEDS ORDERED: Warfarin TAB(*) 5 MG PO SCH (17:00)
[2017-09-15 06:28] LABS: Hematocrit 29 % (35-47); Hemoglobin 10.1 g/dl (12.0-16.0)
[2017-09-15 06:31] LABS: INR 1.4 (0.77-1.02)
[2017-09-15] MEDS: Valsartan TAB* 40 MG PO SCH (07:19)
[2017-09-15] MEDS: Docusate CAP* 100 MG PO SCH ×2 (07:19→20:12)
--- NOTE | 2017-09-15 10:23 | PN ---
Progress Note Date of Service: 09/15/17 Note: MELINA COLORADO was visited. Nursing and therapy notes read and reviewed. No chest pain, shortness of breath or abdominal pain. She wonders if she will do DEMARCO wrap at home. Current Medications: Active Medications Generic Name Dose Route Start Last Admin Trade Name Freq PRN Reason Stop Dose Admin Acetaminophen 650 mg 09/12/17 12:35 09/13/17 13:08 Tylenol Tab* PO 650 mg Q6H PRN Administration FEVER/PAIN Docusate Sodium 100 mg 09/12/17 21:00 09/15/17 07:19 Colace Cap* PO 100 mg BID SALUD Administration Enoxaparin Sodium 30 mg 09/12/17 17:00 09/14/17 16:30 Lovenox(*) SUBCUT 30 mg Q24H SALUD Administration Magnesium Hydroxide 30 ml 09/12/17 12:45 Milk Of Magnesia Liq* PO Q6H PRN CONSTIPATION Oxycodone/Acetaminophen 1 tab 09/12/17 12:45 Percocet 5/325 Tab* PO Q4H PRN PAIN - MODERATE TO SEVERE Oxycodone/Acetaminophen 2 tab 09/12/17 12:47 Percocet 5/325 Tab* PO Q4H PRN PAIN - SEVERE Senna 2 tab 09/12/17 12:35 Senokot Tab* PO BEDTIME PRN CONSTIPATION Valsartan 40 mg 09/13/17 09:00 09/15/17 07:19 Diovan Tab* PO 40 mg DAILY SALUD Administration Warfarin Sodium 5 mg 09/14/17 17:00 09/14/17 16:30 Coumadin Tab(*) PO 5 mg DAILY@1700 SALUD Administration Protocol Vital Signs: Vital Signs Temp Pulse Resp BP Pulse Ox 97.9 F 70 16 139/60 99 09/15/17 05:17 09/15/17 05:17 09/15/17 05:17 09/15/17 05:17 09/15/17 07:15 Lab Results: Laboratory Results - last 24 hr 09/15/17 09/15/17 06:15 06:15 Hgb 10.1 L Hct 29 L INR (Anticoag Therapy) 1.40 H Exam: GEN: no acute distress. alert and appropriate. LUNGS: Clear to auscultation bilaterally. HEART: Regular rate and rhythm ABDOMEN: + bowel sounds, soft, non-tender and non-distended. EXTREMITIES: Mild left LE edema as expected post-op. Dressing c/d/i NEUROLOGIC: LE motor 5/5 bilaterally with normal sensation. Assessment/Plan: 87yo woman s/p left TKR secondary to OA #Left TKR: f/u with Dr. Hernandez. She was seen by Dr. Hernandez 09/14. Percocet prn. PT/ OT. Nursing can teach her to demarco wrap or use TEDs if needed. #DVT ppx: lovenox bridge to coumadin. Increase coumadin to 6mg tonight. INR Saturday #Hypertension: diovan #Advanced Directives: full code #Estimated LOS: anticipate d/c on 09/17/17 09/15/17 10:20
[2017-09-15] MEDS: Warfarin TAB(*) 6 MG PO SCH (16:50)
[2017-09-15] MEDS: Enoxaparin(*) 30 MG/0.3 ML SYR SUBCUT SCH (16:50)
[2017-09-16] MEDS: Valsartan TAB* 40 MG PO SCH (07:39)
[2017-09-16] MEDS: Acetaminophen TAB* 325 MG PO PRN (07:39)
[2017-09-16] MEDS: Docusate CAP* 100 MG PO SCH ×2 (08:06→20:23)
[2017-09-16 08:20] LABS: INR 1.7 (0.77-1.02)
--- NOTE | 2017-09-16 12:39 | PN ---
Progress Note Date of Service: 09/16/17 Note: MELINA COLORADO was visited. Therapy notes read and reviewed. She is ready for discharge tomorrow. INR not yet therapeutic but rising Current Medications: Active Medications Generic Name Dose Route Start Last Admin Trade Name Freq PRN Reason Stop Dose Admin Acetaminophen 650 mg 09/12/17 12:35 09/16/17 07:39 Tylenol Tab* PO 650 mg Q6H PRN Administration FEVER/PAIN Docusate Sodium 100 mg 09/12/17 21:00 09/16/17 08:06 Colace Cap* PO Not Given BID SALUD Enoxaparin Sodium 30 mg 09/12/17 17:00 09/15/17 16:50 Lovenox(*) SUBCUT 30 mg Q24H SALUD Administration Magnesium Hydroxide 30 ml 09/12/17 12:45 Milk Of Magnesia Liq* PO Q6H PRN CONSTIPATION Oxycodone/Acetaminophen 1 tab 09/12/17 12:45 Percocet 5/325 Tab* PO Q4H PRN PAIN - MODERATE TO SEVERE Oxycodone/Acetaminophen 2 tab 09/12/17 12:47 Percocet 5/325 Tab* PO Q4H PRN PAIN - SEVERE Senna 2 tab 09/12/17 12:35 Senokot Tab* PO BEDTIME PRN CONSTIPATION Valsartan 40 mg 09/13/17 09:00 09/16/17 07:39 Diovan Tab* PO 40 mg DAILY SALUD Administration Warfarin Sodium 6 mg 09/15/17 17:00 09/15/17 16:50 Coumadin Tab(*) PO 6 mg DAILY@1700 SALUD Administration Protocol Vital Signs: Vital Signs Temp Pulse Resp BP Pulse Ox 98.2 F 68 17 125/62 98 09/16/17 04:45 09/16/17 04:45 09/16/17 04:45 09/16/17 04:45 09/16/17 04:45 Lab Results: Laboratory Results - last 24 hr 09/16/17 08:05 INR (Anticoag Therapy) 1.70 H Exam: GEN: no acute distress. alert and appropriate. LUNGS: Clear to auscultation bilaterally. HEART: Regular rate and rhythm ABDOMEN: + bowel sounds, soft, non-tender and non-distended. EXTREMITIES: Mild left LE edema as expected post-op. Dressing c/d/i NEUROLOGIC: LE motor 5/5 bilaterally with normal sensation. Assessment/Plan: 1. Left TKR: f/u with Dr. Hernandez. She was seen by Dr. Hernandez 09/14. Percocet prn. PT/OT. Nursing can teach her to demarco wrap or use TEDs if needed. 2. DVT ppx: lovenox bridge to coumadin. coumadin 6mg tonight. INR Saturday 3. Hypertension: diovan 4. Advanced Directives: full code 5. Estimated LOS: anticipate d/c tomorrow 09/16/17 12:39
[2017-09-16] MEDS: Enoxaparin(*) 30 MG/0.3 ML SYR SUBCUT SCH (17:08)
[2017-09-16] MEDS: Warfarin TAB(*) 6 MG PO SCH (17:10)
[2017-09-17 07:12] LABS: INR 2.19 (0.77-1.02)
[2017-09-17 07:25] VITALS: BP 124/48
[2017-09-17] MEDS: Docusate CAP* 100 MG PO SCH ×2 (07:29→07:34)
[2017-09-17] MEDS: Valsartan TAB* 40 MG PO SCH (07:29)
--- NOTE | 2017-09-21 10:37 | DS ---
CC: Blanca Way NP * DISCHARGE SUMMARY: DATE OF ADMISSION: 09/12/17 DATE OF DISCHARGE: 09/17/17 DISCHARGE DIAGNOSES: 1. Left total knee replacement. 2. Ovarian cancer. 3. Hypertension. 4. Right total knee replacement, remote. 5. Status post hysterectomy. HISTORY OF ILLNESS AND HOSPITAL COURSE: For complete history of the events leading up to her rehab stay, please see the history and physical dictated by me on 09/12/17. While on the rehab unit, the patient remained largely stable from a medical point of view. She was maintained on Coumadin and Lovenox for DVT prophylaxis and just on Coumadin when her INR was therapeutic. The patient received adequate analgesia with oral analgesics. She was otherwise medically stable. The patient was seen by both physical and occupational therapy and made good gains with both disciplines. With physical therapy at the time of admission, the patient required contact guard to do a transfer, she could ambulate with contact guard. With occupational therapy at the time of admission , the patient required supervision for upper and lower body dressing, supervision for toilet transfers, supervision for toileting. By the time of discharge, she was independent in all of her activities of daily living. She was independent ambulating 600 feet and independent going up and down 5 stairs. The patient was discharged home on 09/17/17. DISCHARGE DIET: Regular. DISCHARGE MEDICATIONS: 1. Diovan 40 mg daily. 2. Coumadin 4 mg daily or as directed. SERVICES AFTER DISCHARGE: Through the [facility]. She will have home nursing, home physical therapy, and a home health aide. Follow up with Dr. Zulma Hernandez as well as her primary care provider, Blanca Way in [place]. [id number]/[facility] #: [id number] [facility] HOSPITALSohail
== END 2017-09-17 13:44 | disposition home health service (06) | DRG 561 ==
LOC: PMRU 12:19
PROVIDERS: ADMIT Physical Medicine & Rehabilitation; ATTEND Physical Medicine & Rehabilitation
PROC: F07Z5ZZ Bed Mobility Treatment (ICD-10-PCS; principal; 2017-09-12)
PROC: F07Z9ZZ Gait Training/Functional Ambulation Treatment (ICD-10-PCS; 2017-09-12)
PROC: F07Z8ZZ Transfer Training Treatment (ICD-10-PCS; 2017-09-12)
PROC: F08Z0ZZ Bathing/Showering Techniques Treatment (ICD-10-PCS; 2017-09-12)
PROC: F08Z1ZZ Dressing Techniques Treatment (ICD-10-PCS; 2017-09-12)
PROC: F08Z3ZZ Feeding/Eating Treatment (ICD-10-PCS; 2017-09-12)
DX: Z47.1 Aftercare following joint replacement surgery (principal); Z96.652 Presence of left artificial knee joint; I10 Essential (primary) hypertension; Z96.651 Presence of right artificial knee joint; Z90.710 Acquired absence of both cervix and uterus; Z85.43 Personal history of malignant neoplasm of ovary; Z90.79 Acquired absence of other genital organ(s); Z90.722 Acquired absence of ovaries, bilateral; Z79.01 Long term (current) use of anticoagulants; Z79.899 Other long term (current) drug therapy; Z88.0 Allergy status to penicillin; Z88.2 Allergy status to sulfonamides
CPT/HCPCS: 36415; 80053; 85014; 85018; 85025; 85610; A9270-GY; J1650

== ENCOUNTER 2018-01-31 14:55 | Emergency (ER) | payer MEDICARE, OTHER ==
[2018-01-31] MEDS ORDERED: NS 0.9% 1000 ML* 1,000 ML IV ONE (15:48)
[2018-01-31 16:07] LABS: ABS Basophils 0.1 10^3/ul (0-0.2); ABS Eosinophils 0.1 10^3/ul (0-0.6); ABS Lymphocytes 1.2 10^3/ul (1.0-4.8); ABS Monocytes 0.5 10^3/ul (0-0.8); ABS Neutrophils 4.6 10^3/ul (1.5-7.7); ABS Nucleated RBC 0 10^3/ul; Eosinophil % 2.1 % (0-6); Hematocrit 38 % (35-47); Hemoglobin 12.5 g/dl (12.0-16.0); Lymphocyte % 18.3 % (25-47); Mean Corpuscular HGB Conc 33 g/dl (31-36); Mean Corpuscular Hemoglobin 30 pg (27-31); Mean Corpuscular Volume 89 fL (80-97); Mean Platelet Volume 8.3 um3 (7.4-10.4); Nucleated Red Blood Cells % 0.1; Platelet Count 220 10^3/ul (150-450); Red Blood Count 4.23 10^6/ul (4.00-5.40); Red Cell Distribution Width 16 % (10.5-15); White Blood Count 6.4 10^3/ul (3.5-10.8)
[2018-01-31 16:52] LABS: EGFR Non-African American 114.6 (>60)
[2018-01-31] MEDS ORDERED: Potassium Chlor TAB* 20 MEQ TAB.ER PO ONE (17:15)
[2018-01-31 18:12] LABS: Urine Appearance Cloudy; Urine Blood Negative (Negative); Urine Color Yellow; Urine Ketones 1+ (Negative); Urine Protein Negative (Negative); Urine Red Blood Cell Absent (Absent); Urine Specific Gravity 1.018 (1.010-1.030); Urine Urobilinogen Negative (Negative); Urine White Blood Cell 2+(11-20/hpf) (Absent)
[2018-01-31 19:36] VITALS: BP 169/78
--- NOTE | 2018-01-31 20:50 | ED ---
GI/ HPI - HPI Summary HPI Summary: Patient is a 87 y/o F w/ c/o diarrhea onsetting yesterday. She reports 4-5 episodes. Patient reports similar episodes onsetting a month ago. She was seen at [facility] in [place]. Patient diagnosed with C.diff at the start of December, placed on vacomycin for ten days. She states that she stopped experiencing diarrhea until yesterday. She denies abdominal pain, fever, vomiting, but reports slight nausea. PMHx of CHF is denied. On triage, pain is denied, nothing is noted to aggravate/alleviate Sx. Home medications and allergies are reviewed. - History of Current Complaint Chief Complaint: EDGeneral Time Seen by Provider: 01/31/18 15:10 Stated Complaint: DIARRHEA/POSS C DIFF Hx Obtained From: Patient Onset/Duration: Started Days Ago - onset yesterday, Still Present Timing: Constant Current Severity: None Pain Intensity: 0 Associated Signs and Symptoms: Positive: Nausea, Diarrhea. Negative: Vomiting, Fever, Abdominal Pain Aggravating Factor(s): Nothing Alleviating Factor(s): Nothing - Additional Pertinent History Primary Care Physician: [id number] - Allergy/Home Medications Allergies/Adverse Reactions: Allergies Allergy/AdvReac Type Severity Reaction Status Date / Time Penicillins Allergy Rash Verified 01/31/18 15:05 povidone-iodine Allergy Rash Verified 01/31/18 15:05 [From Betadine] soap [From Betadine] Allergy Rash Verified 01/31/18 15:05 Sulfa (Sulfonamide Allergy Rash Verified 01/31/18 15:05 Antibiotics) Home Medications: Home Medications Bifidobacterium Infantis [Align] 4 mg PO DAILY 01/31/18 [History Confirmed 01/31] dilTIAZem HCl [Diltiazem HCl ER] 120 mg PO DAILY 01/31/18 [History Confirmed ] PMH/Surg Hx/FS Hx/Imm Hx Endocrine/Hematology History: Denies: Hx Diabetes, Hx Thyroid Disease Cardiovascular History: Reports: Hx Hypertension Denies: Other Cardiovascular Problems/Disorders Respiratory History: Denies: Hx Asthma, Hx Chronic Obstructive Pulmonary Disease (COPD), Other Respiratory Problems/Disorders GI History: Denies: Hx Ulcer, Other GI Disorders History: Denies: Other Problems/Disorders Musculoskeletal History: Reports: Hx Arthritis - Left knee, bilateral hands, Hx Rheumatoid Arthritis - START OF IT, Other Musculoskeletal History - Right total knee replacement Denies: Hx Osteoporosis Sensory History: Reports: Hx Contacts or Glasses Denies: Hx Hearing Aid Opthamlomology History: Reports: Hx Contacts or Glasses Neurological History: Denies: Other Neuro Impairments/Disorders Psychiatric History: Denies: Other Psychiatric Issues/Disorders - Cancer History Cancer Type, 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 RTKR - Apr 2015 Hx Anesthesia Reactions: No - Immunization History Immunizations Up to Date: Yes Infectious Disease History: Yes Infectious Disease History: Denies: Hx Hepatitis, Hx Human Immunodeficiency Virus (HIV), Hx of Known/ Suspected MRSA, History Other Infectious Disease, Traveled Outside the [place] in Last 30 Days - Family History Known Family History: Negative: Blood Disorder - Social History Alcohol Use: None Substance Use Type: Reports: None Smoking Status (MU): Never Smoked Tobacco Review of Systems Negative: Fever Positive: Diarrhea, Nausea. Negative: Abdominal Pain, Vomiting All Other Systems Reviewed And Are Negative: Yes Physical Exam - Summary Physical Exam Summary: GENERAL: Patient is a well-developed and nourished female who is lying comfortable in the stretcher. Patient is not in any acute respiratory distress. HEAD AND FACE: Normocephalic EYES: PERRLA, EOMI x 2. EARS: Hearing grossly intact. MOUTH: Oropharynx within normal limits. NECK: Supple, trachea is midline, no adenopathy, no JVD, no carotid bruit. CHEST: Symmetric, no tenderness at palpation LUNGS: Clear to auscultation bilaterally. No wheezing or crackles. CVS: Regular rate and rhythm, S1 and S2 present, no murmurs or gallops appreciated. ABDOMEN: Soft, non-tender. Bowel sounds are normal. No abdominal abnormal pulsations. EXTREMITIES: Full ROM in all major joints, no edema, no cyanosis or clubbing. NEURO: Alert and oriented x 3. No acute neurological deficits. Speech is normal and follows commands. SKIN: Dry and warm Triage Information Reviewed: Yes Vital Signs On Initial Exam: Initial Vitals Temp Pulse Resp BP Pulse Ox 98.6 F 78 18 145/65 97 01/31/18 15:01 01/31/18 15:01 01/31/18 15:01 01/31/18 15:01 01/31/18 15:01 Vital Signs Reviewed: Yes Diagnostics - Vital Signs Vital Signs Temp Pulse Resp BP Pulse Ox 01/31/18 19:36 96.6 F 78 18 169/78 100 01/31/18 15:01 98.6 F 78 18 145/65 97 - Laboratory Lab Results: Lab Results 01/31/18 01/31/18 01/31/18 Range/Units 15:56 15:56 15:56 WBC 6.4 (3.5-10.8) 10^3/ul RBC 4.23 (4.00-5.40) 10^6/ul Hgb 12.5 (12.0-16.0) g/dl Hct 38 (35-47) % MCV 89 (80-97) fL MCH 30 (27-31) pg MCHC 33 (31-36) g/dl RDW 16 H (10.5-15) % Plt Count 220 (150-450) 10^3/ul MPV 8.3 (7.4-10.4) um3 Neut % (Auto) 71.2 (38-83) % Lymph % (Auto) 18.3 L (25-47) % [place] % (Auto) 7.3 H (0-7) % Eos % (Auto) 2.1 (0-6) % Baso % (Auto) 1.1 (0-2) % Absolute Neuts (auto) 4.6 (1.5-7.7) 10^3/ul Absolute Lymphs (auto) 1.2 (1.0-4.8) 10^3/ul Absolute Monos (auto) 0.5 (0-0.8) 10^3/ul Absolute Eos (auto) 0.1 (0-0.6) 10^3/ul Absolute Basos (auto) 0.1 (0-0.2) 10^3/ul Absolute Nucleated RBC 0 10^3/ul Nucleated RBC % 0.1 Sodium 140 (135-145) mmol/L Potassium 3.1 L (3.5-5.0) mmol/L Chloride 107 (101-111) mmol/L Carbon Dioxide 29 (22-32) mmol/L Anion Gap 4 (2-11) mmol/L BUN 12 (6-24) mg/dL Creatinine 0.51 (0.51-0.95) mg/dL Est GFR ( Amer) 138.7 (>60) Est GFR (Non-Af Amer) 114.6 (>60) BUN/Creatinine Ratio 23.5 H (8-20) Glucose 99 (70-100) mg/dL Lactic Acid 0.7 (0.5-2.0) mmol/L Calcium 8.7 (8.6-10.3) mg/dL Magnesium 1.9 (1.9-2.7) mg/dL Total Bilirubin 0.70 (0.2-1.0) mg/dL AST 19 (13-39) U/L ALT 13 (7-52) U/L Alkaline Phosphatase 59 (34-104) U/L C-Reactive Protein 7.39 (<8.01) mg/L Total Protein 5.1 L (6.4-8.9) g/dL Albumin 3.4 (3.2-5.2) g/dL Globulin 1.7 L (2-4) g/dL Albumin/Globulin Ratio 2.0 (1-3) Lipase 31 (11.0-82.0) U/L Urine Color Urine Appearance Urine pH (5-9) Ur Specific [place] (1.010-1.030) Urine Protein (Negative) Urine Ketones (Negative) Urine Blood (Negative) Urine Nitrate (Negative) Urine Bilirubin (Negative) Urine Urobilinogen (Negative) Ur Leukocyte Esterase (Negative) Urine WBC (Auto) (Absent) Urine RBC (Auto) (Absent) Ur Squamous Epith Cells (Absent) Urine Bacteria (Absent) Urine Glucose (Negative) 01/31/18 Range/Units 17:48 WBC (3.5-10.8) 10^3/ul RBC (4.00-5.40) 10^6/ul Hgb (12.0-16.0) g/dl Hct (35-47) % MCV (80-97) fL MCH (27-31) pg MCHC (31-36) g/dl RDW (10.5-15) % Plt Count (150-450) 10^3/ul MPV (7.4-10.4) um3 Neut % (Auto) (38-83) % Lymph % (Auto) (25-47) % [place] % (Auto) (0-7) % Eos % (Auto) (0-6) % Baso % (Auto) (0-2) % Absolute Neuts (auto) (1.5-7.7) 10^3/ul Absolute Lymphs (auto) (1.0-4.8) 10^3/ul Absolute Monos (auto) (0-0.8) 10^3/ul Absolute Eos (auto) (0-0.6) 10^3/ul Absolute Basos (auto) (0-0.2) 10^3/ul Absolute Nucleated RBC 10^3/ul Nucleated RBC % Sodium (135-145) mmol/L Potassium (3.5-5.0) mmol/L Chloride (101-111) mmol/L Carbon Dioxide (22-32) mmol/L Anion Gap (2-11) mmol/L BUN (6-24) mg/dL Creatinine (0.51-0.95) mg/dL Est GFR ( Amer) (>60) Est GFR (Non-Af Amer) (>60) BUN/Creatinine Ratio (8-20) Glucose (70-100) mg/dL Lactic Acid (0.5-2.0) mmol/L Calcium (8.6-10.3) mg/dL Magnesium (1.9-2.7) mg/dL Total Bilirubin (0.2-1.0) mg/dL AST (13-39) U/L ALT (7-52) U/L Alkaline Phosphatase (34-104) U/L C-Reactive Protein (<8.01) mg/L Total Protein (6.4-8.9) g/dL Albumin (3.2-5.2) g/dL Globulin (2-4) g/dL Albumin/Globulin Ratio (1-3) Lipase (11.0-82.0) U/L Urine Color Yellow Urine Appearance Cloudy Urine pH 5.0 (5-9) Ur Specific [place] 1.018 (1.010-1.030) Urine Protein Negative (Negative) Urine Ketones 1+ A (Negative) Urine Blood Negative (Negative) Urine Nitrate Negative (Negative) Urine Bilirubin Negative (Negative) Urine Urobilinogen Negative (Negative) Ur Leukocyte Esterase 1+ A (Negative) Urine WBC (Auto) 2+(11-20/hpf) A (Absent) Urine RBC (Auto) Absent (Absent) Ur Squamous Epith Cells Present A (Absent) Urine Bacteria Absent (Absent) Urine Glucose Negative (Negative) Result Diagrams: 01/31/18 15:56 01/31/18 15:56 Lab Statement: Any lab studies that have been ordered have been reviewed, and results considered in the medical decision making process. Re-Evaluation - Re-Evaluation First Eval Re-Evaluation Time: 17:10 Change: Improved Comment: Discussed results with patient and patient reports feeling better. Patient is hemodynamically stable and safe for discharge. Strict return precautions given and patient will otherwise follow up with PCP GIGU Course/Dx - Course Course Of Treatment: Patient is a 87 y/o F w/ c/o diarrhea onsetting yesterday. She reports 4-5 episodes. Patient reports similar episodes onsetting a month ago. She was seen at [facility] in [place]. Patient diagnosed with C.diff at the start of December, placed on vacomycin for ten days. She states that she stopped experiencing diarrhea until yesterday. She denies abdominal pain, fever , vomiting, but reports slight nausea. PMHx of CHF is denied. Physical exam was normal. During ED course, patient received fluids and Klor Con Er Tab 40 meq PO ONCE. UA showed 1+ ketones, 1+ leuckocyte esterase, 2+ WBC, squamous epith cells present, negative bacteria, glucose absent. Labs showed lipase 31, lactic acid 0.7, glucose 99, creatinine 0.51, WBC 6.4. Patient was positive for toxigenic c.diff. Discussed results with patient and patient reports feeling better. Patient is hemodynamically stable and safe for discharge. Strict return precautions given and patient will otherwise follow up with PCP. Dx of c.diff infection. - Diagnoses Provider Diagnoses: Clostridium difficile infection Discharge - Sign-Out/Discharge Documenting (check all that apply): Patient Departure - discharge - Discharge Plan Condition: Stable Disposition: HOME Prescriptions: Vancomycin CAP* 125 mg PO QID 14 Days #56 cap Patient Education Materials: C Diff (Clostridium Difficile) Infection (ED) Referrals: Blanca aWy [Primary Care Provider] - 3 Days Additional Instructions: Follow up with your primary care physician in 1-3 days. Given that this is your first reoccurrence, you will needed to be treated with vancomycin for an extended period of time. First dose will be written for 14 days, you will need to follow up with your primary care physician for further vancomycin regimen, which involves 125 mg orally twice daily for 7 days, then 125 mg orally once daily for 7 days, then 125 mg orally every 2 or 3 days for 2-8 weeks. RETURN TO THE EMERGENCY DEPARTMENT FOR CHANGING OR WORSENING SYMPTOMS. - Billing Disposition and Condition Condition: STABLE Disposition: Home - Attestation Statements Document Initiated by Saade: Yes Documenting Scribe: Hiren Cornell Provider For Whom Scribe is Documenting (Include Credential): Lisa Ramos MD Scribe Attestation: IHiren , scribed for Lisa Ramos MD on 01/31/18 at 2142. Scribe Documentation Reviewed: Yes Provider Attestation: The documentation as recorded by the Hiren doyle accurately reflects the service I personally performed and the decisions made by , Lisa Ramos MD
--- NOTE | 2018-02-01 06:10 | ED ---
Progress - Progress Note Progress Note: Patient's stool culture result reveals C. difficile and positive by immunoassay. Patient was diagnosed with C. difficile at discharge and started on oral vancomycin. No change in treatment at this time. Re-Evaluation - Re-Evaluation First Eval Re-Evaluation Time: 17:10 Change: Improved Comment: Discussed results with patient and patient reports feeling better. Patient is hemodynamically stable and safe for discharge. Strict return precautions given and patient will otherwise follow up with PCP Course/Dx - Course Course Of Treatment: Patient is a 87 y/o F w/ c/o diarrhea onsetting yesterday. She reports 4-5 episodes. Patient reports similar episodes onsetting a month ago. She was seen at [facility] in [place]. Patient diagnosed with C.diff at the start of December, placed on vacomycin for ten days. She states that she stopped experiencing diarrhea until yesterday. She denies abdominal pain, fever , vomiting, but reports slight nausea. PMHx of CHF is denied. Physical exam was normal. During ED course, patient received fluids and Klor Con Er Tab 40 meq PO ONCE. UA showed 1+ ketones, 1+ leuckocyte esterase, 2+ WBC, squamous epith cells present, negative bacteria, glucose absent. Labs showed lipase 31, lactic acid 0.7, glucose 99, creatinine 0.51, WBC 6.4. Patient was positive for toxigenic c.diff. Discussed results with patient and patient reports feeling better. Patient is hemodynamically stable and safe for discharge. Strict return precautions given and patient will otherwise follow up with PCP. Dx of c.diff infection. - Diagnoses Provider Diagnoses: Clostridium difficile infection Discharge - Sign-Out/Discharge Documenting (check all that apply): Post-Discharge Follow Up - Discharge Plan Condition: Stable Disposition: HOME Prescriptions: Vancomycin CAP* 125 mg PO QID 14 Days #56 cap Patient Education Materials: C Diff (Clostridium Difficile) Infection (ED) Referrals: Blanca Way [Primary Care Provider] - 3 Days Additional Instructions: Follow up with your primary care physician in 1-3 days. Given that this is your first reoccurrence, you will needed to be treated with vancomycin for an extended period of time. First dose will be written for 14 days, you will need to follow up with your primary care physician for further vancomycin regimen, which involves 125 mg orally twice daily for 7 days, then 125 mg orally once daily for 7 days, then 125 mg orally every 2 or 3 days for 2-8 weeks. RETURN TO THE EMERGENCY DEPARTMENT FOR CHANGING OR WORSENING SYMPTOMS. - Billing Disposition and Condition Condition: STABLE Disposition: Home
== END 2018-01-31 19:36 | disposition home or self-care (01) ==
LOC: ED 14:55
DX: A04.72 Enterocolitis due to Clostridium difficile, not specified as recurrent (principal); I10 Essential (primary) hypertension; Z88.3 Allergy status to other anti-infective agents; Z88.0 Allergy status to penicillin; Z88.2 Allergy status to sulfonamides
CPT/HCPCS: 36415; 80053; 81003; 81015; 83605; 83630; 83690; 83735; 85025; 86140; 87086; 87328; 87329; 87493; 96360; 96361; 99283; A9270-GY

== ENCOUNTER 2020-08-18 13:18 | Observation (INO) ==
[2020-08-18] MEDS ORDERED: NS 0.9% 1000 ml BAG 1,000 ML IV ONE (13:27)
[2020-08-18] MEDS ORDERED: Iodixanol (CONTRAST) 320 MG/ML 100 ML SDV IV ONE (13:35)
[2020-08-18 13:45] LABS: ABS Basophils 0.1 10^3/ul (0-0.2); ABS Eosinophils 0.2 10^3/ul (0-0.6); ABS Lymphocytes 1.1 10^3/ul (1.0-4.8); ABS Monocytes 0.4 10^3/ul (0-0.8); ABS Neutrophils 3.3 10^3/ul (1.5-7.7); Eosinophil % 4.1 %; Hematocrit 43 % (35-47); Hemoglobin 14.4 g/dL (12.0-16.0); Lymphocyte % 22.5 %; Mean Corpuscular HGB Conc 34 g/dL (31-36); Mean Corpuscular Hemoglobin 32 pg (27-31); Mean Corpuscular Volume 94 fL (80-97); Mean Platelet Volume 8.3 fL (7.4-10.4); Nucleated Red Blood Cells % 0.1; Platelet Count 226 10^3/uL (150-450); Red Blood Count 4.54 10^6 /uL (3.70-4.87); Red Cell Distribution Width 13 % (10-15); White Blood Count 5.1 10^3/uL (3.5-10.8)
[2020-08-18 13:56] LABS: Activated Partial Thrombo Time 28.9 seconds (26.0-38.0)
[2020-08-18 14:02] LABS: Albumin 4.5 g/dL (3.2-5.2); Albumin/Globulin Ratio 2.1 (1-3); Calcium 9.1 mg/dL (8.6-10.3); EGFR African American 114.2 (>60); EGFR Non-African American 94.3 (>60); Globulin 2.1 g/dL (2-4); HDL Cholesterol 47.2 mg/dL; Potassium 4.3 mmol/L (3.5-5.0); Total Bilirubin 0.4 mg/dL (0.2-1.0); Total Protein 6.6 g/dL (6.4-8.9)
[2020-08-18 14:21] LABS: Urine Appearance Clear; Urine Bilirubin Negative (Negative); Urine Blood Negative (Negative); Urine Color Yellow; Urine Glucose Negative (Negative); Urine Ketones Negative (Negative); Urine Nitrite Negative (Negative); Urine Protein Negative (Negative); Urine Specific Gravity 1.018 (1.002-1.030); Urine Urobilinogen Negative (Negative)
[2020-08-18 14:28] LABS: Urine Bacteria Absent (Absent); Urine Red Blood Cell Trace(0-2/hpf) (Absent); Urine Squamous Epithelial Cell Present (Absent); Urine White Blood Cell Trace(0-5/hpf) (Absent)
[2020-08-18] MEDS: Aspirin EC 81 mg TAB.EC (enteric coated) PO SCH (15:37)
[2020-08-18] MEDS ORDERED: Ondansetron 4 mg VIAL 2 MG/ML 2 ml VIAL IV PRN (16:26)
[2020-08-18] MEDS ORDERED: Enoxaparin 40 MG/0.4 ML SYR SUBCUT SCH (17:00)
[2020-08-19 06:29] LABS: ABS Basophils 0.1 10^3/ul (0-0.2); ABS Eosinophils 0.4 10^3/ul (0-0.6); ABS Lymphocytes 0.9 10^3/ul (1.0-4.8); ABS Monocytes 0.4 10^3/ul (0-0.8); ABS Neutrophils 2.4 10^3/ul (1.5-7.7); Eosinophil % 8.8 %; Hematocrit 40 % (35-47); Hemoglobin 13.5 g/dL (12.0-16.0); Lymphocyte % 21.3 %; Mean Corpuscular HGB Conc 34 g/dL (31-36); Mean Corpuscular Hemoglobin 32 pg (27-31); Mean Corpuscular Volume 94 fL (80-97); Mean Platelet Volume 8.6 fL (7.4-10.4); Platelet Count 211 10^3/uL (150-450); Red Blood Count 4.25 10^6 /uL (3.70-4.87); Red Cell Distribution Width 13 % (10-15)
[2020-08-19 06:48] LABS: Calcium 8.8 mg/dL (8.6-10.3); EGFR African American 131.7 (>60); EGFR Non-African American 108.9 (>60)
[2020-08-19] MEDS: Aspirin EC 81 mg TAB.EC (enteric coated) PO SCH (09:07)
[2020-08-19 20:11] VITALS: BP 168/65
== END 2020-08-19 15:49 | disposition home or self-care (01) ==
LOC: MEDTELE 13:18 → ED 13:18
PROVIDERS: ADMIT Internal Medicine; ATTEND Internal Medicine